=== PATIENT | male | born 1970 | race Caucasian/White ===

== ENCOUNTER 2022-02-12 13:13 | Emergency (ER) | payer OTHER, SELFPAY ==
[2022-02-12 13:22] VITALS: BP 133/97; PULSE 91; RESP 16; TEMP 36.7; O2SAT 96; BMI 25.0
--- NOTE | 2022-02-12 13:43 | XR_ITS ---
FINAL REPORT CLINICAL HISTORY: INJURED LEFT PINKY FINGER FINDINGS: LEFT HAND: 3 views of the left hand were obtained. There are chronic fractures of the distal 4th and 5th metacarpals. There is a comminuted fracture of the 5th proximal phalanx. The fracture line extends to the 5th MCP joint. There is medial angulation of the distal 5th digit. Visualized joint spaces are normally aligned. Soft tissues are unremarkable. IMPRESSION: Comminuted, intra-articular fracture of the 5th proximal phalanx. Reviewed, Interpreted and Dictated by Rahul Ralph III, MD Transcribed by Ki Beckwith Authenticated and [facility]
[2022-02-12 14:15] VITALS: BP 133/97; PULSE 91; RESP 16; TEMP 36.7; O2SAT 96; BMI 25.0
--- NOTE | 2022-02-12 14:32 | EXP.UTC ---
Discharge Plan Disposition Patient Disposition: Home, Self-Care Condition: Good Prescriptions Prescriptions: New ibuprofen 600 mg tablet 600 mg PO Q6HP PRN (Reason: Moderate Pain) Qty: 20 0RF Referrals Follow up/Referrals: Ramírez Quick MD [Referring] - See instructions (Call office for appointment next week) Juana Smith [Primary Care Provider] - See instructions Activity Restrictions/Add. Instructions Additional Instructions/Restrictions: *RICE, Rest the extremity, Ice 15-20 minutes 3-4 times daily, Compress- wear the sam wrap as discussed as much as possible to help reduce swelling and pain, Elevate the extremity when at rest *Sam wrap/ Orthoglass splint is for support and help control swelling, do not get it wet. Be sure that is not to tight but not to loose either *Elevate when resting? *Ibuprofen as prescribed every 6-8 hours as needed for pain an inflammation. If need something more can take Tylenol in between doses of Ibuprofen to help Immediately follow up with your family doctor for new or worsening of symptoms, or no noticeable improvement over the next 3-[address] Quick office above for appointment next week Clinical Impressions Clinical Impression: Finger fracture Instructions Patient Instructions: How To Perform RICE (Rest, Ice, Compress, Elevate), Ibuprofen Discharge ED Provider: Aruna Mckeon [facility] [place] General Stated complaint: [id number] pinkie finger left hand,home accide Mode of Arrival: Ambulatory Source of Information: Patient Limitations: No Limitations Time Seen by Provider: 02/12/22 14:34 Description of Symptoms (Recalled from Triage Doc. by RN): PATIENT C/O INJURY TO LEFT PINKY FINGER AFTER GETTING IT CAUGHT IN A HORSE ROPE HEENT Symptoms (Recalled from RN notes): No Resp Symptoms (Recalled from RN notes): No Skin Symptoms (Recalled from RN notes): No MS Symptoms (Recalled from RN notes): Yes Functional Status (Recalled from RN notes): WNL History of Present Illness Provider Complaint: Patient states that he was riding and horse earlier today when his hand got caught up in the rope and pulled his left little finger States that he has been having pain in finger ever since States that it has always leaned to the side from old injury but looks like it is a little worse after getting it caught today Related Data Previous Rx's Medication Instructions Recorded ibuprofen 600 mg tablet 600 mg PO Q6HP PRN Moderate Pain 02/12/22 #20 tabs Allergies Allergy/AdvReac Type Severity Reaction Status Date / Time No Known Allergies Allergy Verified 02/12/22 13:43 Worker's Comp Is this a Worker's Comp case?: No PFSH PFS Social History (Updated 02/12/22 @ 14:31 by Arianna Estrada RN) Smoking Status: Current every day smoker alcohol intake: current current occupational status: other Travel in the last 8 weeks: None ROS Obtained: Yes All systems reviewed & no additional complaints except as documented and Yes Systems reviewed as appropriate & no additional complaints except as documented ENT Ears, Nose, Mouth, and Throat: Reports system reviewed and no additional complaints, except as documented and Reports as per HPI Cardiovascular Cardiovascular: Reports system reviewed and no additional complaints, except as documented and Reports as per HPI Respiratory Respiratory: Reports system reviewed and no additional complaints, except as documented and Reports as per HPI Gastrointestinal Gastrointestingal: Reports system reviewed and no additional complaints, except as documented and as per HPI Genitourinary Male Genitourinary: Reports system reviewed and no additional complaints, except as documented and Reports as per HPI Physical Exam General General appearance: alert and in no apparent distress Respiratory Respiratory exam: Present normal lung sounds bilaterally and respiratory distress Cardiovascular Cardiovascular exam: Present regular rate, normal rhy
[2022-02-12 14:59] VITALS: BP 133/97; PULSE 91; RESP 16; TEMP 36.7; O2SAT 96
== END 2022-02-12 15:00 | disposition home or self-care (01) ==
PROVIDERS: Emergency Provider Nurse Practitioner; PCP Nurse Practitioner Family
DX: S62.607A Fracture of unspecified phalanx of left little finger, initial encounter for closed fracture (principal); F17.210 Nicotine dependence, cigarettes, uncomplicated; Z79.1 Long term (current) use of non-steroidal anti-inflammatories (NSAID); W23.0XXA Caught, crushed, jammed, or pinched between moving objects, initial encounter
CPT/HCPCS: 29125; 73130; 99213; G0463

== ENCOUNTER 2024-06-01 10:28 | Outpatient (CLI) | payer BC, SELFPAY ==
[2024-06-01 16:46] LABS: Alanine Aminotransferase 36 U/L (12-78); Albumin Level 4.7 g/dl (3.5-5.0); Albumin/Globulin Ratio 1.7 (1.1-1.8); Alkaline Phosphatase 95 U/L (38-126); Aspartate Amino Transferase 37 U/L (17-59); Bilirubin,Total 0.7 mg/dl (0.2-1.3); Blood Urea Nitrogen 15 mg/dl (9-20); Calcium 9.5 mg/dl (8.4-10.2); Carbon Dioxide 27 mmol/L (22.0-30.0); Chloride 106 mmol/L (98-107); Chol/HDL Ratio 4.7 (1-3.5); Cholesterol 213 mg/dl (140-200); Estimated Glomerular Filt Rate 88 ml/min (>60); GFR (African American) 106 ML/MIN (>60); Globulin 2.7 g/dL (1.3-3.2); Glucose 71 mg/dl (74-100); HDL Cholesterol 45 mg/dl (40-60); Sodium 140 mmol/L (136-145); Total Protein,Serum 7.4 g/dl (6.3-8.2); Triglycerides 99 mg/dl (30-150); VLDL Cholesterol 20 mg/dL (0-40)
[2024-06-01 16:57] LABS: Direct LDL Cholesterol 132.55 mg/dL (100-129)
[2024-06-01 17:05] LABS: Hematocrit 47.8 % (42.0-52.0); Hemoglobin 15.8 g/dL (14.1-18.0); Mean Corpuscular HGB Conc 33.1 g/dL (31.8-35.4); Mean Corpuscular Hemoglobin 30.5 pg (27.0-31.2); Mean Corpuscular Volume 92.3 fl (80-94); Platelet Count 385 K/mm3 (142-424); Red Blood Count 5.18 M/mm3 (4.60-6.20); Red Cell Distribution Width 12.5 % (11.5-17.5); White Blood Count 6.6 K/mm3 (4.8-10.8)
[2024-06-01 17:06] LABS: Basophils % 0.5 % (0.1-2.0); Eosinophils # 0.1 K/mm3 (0.0-0.4); Eosinophils % 2.1 % (0.1-12.0); Lymphocytes # 1.7 K/mm3 (0.7-4.5); Lymphocytes % 26.1 % (10-50); Mean Platelet Volume 9.3 fl (7.4-10.4); Monocytes # 0.5 K/mm3 (0.1-1.0); Monocytes % 7.1 % (1.7-9.3); Neutrophils # 4.2 K/mm3 (1.8-7.8)
[2024-06-01 17:53] LABS: Anion Gap 11.9 mEq/L (5-15); Potassium 4.9 mmoL/L (3.5-5.1)
[2024-06-01 18:29] LABS: Thyroid Stimulating Hormone 1.06 uIU/mL (0.465-4.68)
[2024-06-01 18:34] LABS: HIV Combo NEGATIVE (Negative)
[2024-06-01 18:39] LABS: Prostate Specific Ag Screen 0.7 ng/ml (0.0-4.0)
[2024-06-02 08:14] LABS: HCV Ab Non Reactive (Non Reactive)
[2024-06-02 11:04] LABS: Testosterone,Total 360 ng/dL (264-916)
== END 2024-06-01 23:59 | disposition home or self-care (01) ==
LOC: LAB.DROPOF 06-04 12:14
PROVIDERS: PCP Family Medicine; Visit Provider Family Medicine
DX: Z12.5 Encounter for screening for malignant neoplasm of prostate (principal); Z00.00 Encounter for general adult medical examination without abnormal findings; Z11.59 Encounter for screening for other viral diseases
CPT/HCPCS: 80050; 80053; 80061; 84403; 84443; 85025; 86803; 87389; G0103